=== PATIENT | female | born 1980 | race Caucasian/White ===

== ENCOUNTER → 2017-09-22 | Outpatient (CLI) | payer BC ==
[2017-09-22 10:38] VITALS: BP 116/68; PULSE 71; RESP 16; TEMP 98.4; BMI 29.8
--- NOTE | 2017-11-08 04:50 | P.PN ---
Subjective Progress Note Date: 09/22/17 DATE OF SERVICE: 09/22/2017 CHIEF COMPLAINT: Followup sleeve gastrectomy. HISTORY OF PRESENT ILLNESS: Erica Garay is a 37-year-old female who is status post sleeve gastrectomy, 2014. She is now over 3 years ago. Her highest weight was 253 pounds. Today she comes in 179 pounds. Since her last visit 1 year ago, she has lost another 6 pounds. She has been doing a high- protein low-carb diet.. She comes in today with concerns of her chronic panniculitis over 2+ years. She has been using prescribed medicated powders with minimal improvement. Her personal goal is to get down to 150 pounds. At present she has lost 74 pounds. Her excess percent weight loss is 71%. At her height of 5 foot 5 inches, her ideal body weight is 149 pounds. She is now 30 pounds overweight. No reports of reflux disease. No reports of abdominal pain. She complains of pain in her right hip as well as generalized fatigue. PAST MEDICAL HISTORY: 1. Osteoarthritis. 2. Gilbert syndrome. 3. Obesity. PAST SURGICAL HISTORY: 1. Bilateral breast reduction. 2. . 3. Laparoscopic cholecystectomy. 4. Sleeve gastrectomy. MEDICATIONS: 1. Nystatin. 2. Multivitamins. ALLERGIES: 1. ADHESIVE TAPE. 2. PENICILLIN. SOCIAL HISTORY: Lifelong nontobacco user. FAMILY HISTORY: No reports of gastrointestinal malignancies. History of morbid obesity and diabetes. REVIEW OF SYSTEMS: CONSTITUTIONAL: [place] body weight is 149 pounds. Highest weight 253 pounds. Body mass index reduced from 42.2 down to 29.9. GASTROINTESTINAL: No reports of gastroesophageal reflux disease. MUSCULOSKELETAL: Resolved lower back and bilateral knee pain. CARDIOVASCULAR: Resolved hypertension. Denies palpitations. RESPIRATORY: History of obstructive sleep apnea and insomnia. ENDOCRINE: No reports of diabetes. No reports of hypothyroidism. SKIN: Reports pannus with occasional itch and ulcerations consistent with mild to moderate panniculitis. HEENT: No troubles with vision or hearing. GI: No reports of dysphagia or change in bowel habits. NEURO: No reports of headaches or seizure disorders. PSYCH: No reports of depression or suicidal ideation. HEMATOLOGIC: No reports of DVTs or pulmonary embolism. PHYSICAL EXAM: VITAL SIGNS: 5 foot 5, 179 pounds. Body mass index 29.9. Vital Signs Temp 98.4 F 09/22/17 10:36 Pulse 71 09/22/17 10:36 Resp 16 09/22/17 10:36 BP 116/68 09/22/17 10:36 Pulse Ox GENERAL: Well-developed female in no acute distress. ABDOMEN: Soft. Nontender. Nondistended. No palpable incisional hernias. Pannus over pubis 5 cm. Weight of pannus 8 pounds. Findings of panniculitis with hyperemia along skin folds. MUSCULOSKELETAL: No clubbing, cyanosis, or edema. HEENT: No scleral icterus. Extraocular movements grossly intact. Moist. Mucosa. NECK: Supple without lymphadenopathy. CHEST: Nonlabored respirations with equal bilateral excursions. CARDIOVASCULAR: Regular rate and rhythm. NEURO: No focal or lateralizing signs. PSYCH: Alert and oriented to person place and time. SKIN: Well perfused. Good skin turgor. ASSESSMENT: 1. Morbid obesity due to excess calories. 2. Body mass index reduced from 42.2 down to 29.9. 3. Status post sleeve gastrectomy. 4. Panniculitis of the trunk. 5. Generalized fatigue. 6. Right hip pain. PLAN: 1. Recommend bariatric lab panel. 2. I reviewed benefits and risks of panniculectomy however she is seeking her personal goal of 150 pounds. Weight loss of approximately 100 pounds described. 3. Benefits and risks of panniculectomy including bleeding, infection, postoperative seromas, chronic pain, and cosmetic deformity were described. A panniculectomy packet was given. Recommend pictures today. 4. Additional prescription of nystatin powder in interim. 5. Recommend correction of nutritional deficiencies for generalized fatigue. 6. For her right hip pain, may benefit from plain right hip films.
== END | disposition home or self-care (01) ==
LOC: BARWHC3 09:04
PROVIDERS: ATTEND Surgery Plastic and Reconstructive Surgery
DX: Z09 Encounter for follow-up examination after completed treatment for conditions other than malignant neoplasm (principal); E66.01 Morbid (severe) obesity due to excess calories; M79.3 Panniculitis, unspecified; M25.551 Pain in right hip; R53.83 Other fatigue; M19.90 Unspecified osteoarthritis, unspecified site; E80.4 Gilbert syndrome; E66.9 Obesity, unspecified; Z68.41 Body mass index [BMI] 40.0-44.9, adult; Z90.49 Acquired absence of other specified parts of digestive tract; Z79.899 Other long term (current) drug therapy; Z88.0 Allergy status to penicillin; Z91.048 Other nonmedicinal substance allergy status; Z83.3 Family history of diabetes mellitus; Z98.84 Bariatric surgery status
CPT/HCPCS: 99211

== ENCOUNTER → 2017-10-15 | Outpatient (CLI) | payer BC ==
[2017-10-15 12:10] LABS: Basophils % (A) 0 %; Eosinophils # (A) 0.1 k/uL (0-0.7); Eosinophils % (A) 1 %; HCT 41.6 % (34.0-46.0); HGB 13.5 gm/dL (11.4-16.0); Lymphocytes # (A) 2.5 k/uL (1.0-4.8); Lymphocytes % (A) 34 %; MCH 29.6 pg (25.0-35.0); MCHC 32.5 g/dL (31.0-37.0); Mean Platelet Volume 6.9; Monocytes # (A) 0.3 k/uL (0-1.0); Monocytes % (A) 5 %; Neutrophils # (A) 4.3 k/uL (1.3-7.7); Neutrophils % (A) 59 %; Platelet Count 257 k/uL (150-450); RBC 4.58 m/uL (3.80-5.40); RDW 12.6 % (11.5-15.5); WBC 7.3 k/uL (3.8-10.6)
[2017-10-15 12:17] LABS: Partial Thromboplastin Time 23.2 sec (22.0-30.0); Prothrombin Time 9.7 sec (9.0-12.0)
[2017-10-15 12:31] LABS: ALT 38 U/L (9-52); AST 21 U/L (14-36); Albumin 4.1 g/dL (3.5-5.0); Alkaline Phosphatase 46 U/L (38-126); Anion Gap 10 mmol/L; Blood Urea Nitrogen 15 mg/dL (7-17); Calcium 9.6 mg/dL (8.4-10.2); Carbon Dioxide 30 mmol/L (22-30); Chloride 103 mmol/L (98-107); Cholesterol 174 mg/dL (<200); Glucose 83 mg/dL (74-99); HDL Cholesterol 57 mg/dL (40-60); LDL Cholesterol,Calculated 82 mg/dL (0-99); Magnesium 1.9 mg/dL (1.6-2.3); Phosphorus 3.2 mg/dL (2.5-4.5); Potassium 4.4 mmol/L (3.5-5.1); Sodium 143 mmol/L (137-145); Total Bilirubin 1.3 mg/dL (0.2-1.3); Triglycerides 173 mg/dL (<150)
[2017-10-15 17:39] LABS: Iron Saturation 48.5 (12.00-45.00)
[2017-10-15 17:47] LABS: Vitamin D 25 Hydroxy 28.2 ng/mL (30.0-100.0)
[2017-10-15 18:05] LABS: Folate, Serum 14.6 ng/mL
[2017-10-15 18:24] LABS: Parathyroid Hormone Intact 48.2 pg/mL (14.0-72.0)
[2017-10-15 19:20] LABS: Hemoglobin A1C 4.9 % (4.0-6.0)
[2017-10-18 05:26] LABS: Vitamin A 76 ug/dL (38-106)
[2017-10-18 05:37] LABS: Zinc, Serum 50 ug/dL (60-130)
[2017-10-18 07:12] LABS: Vitamin B1 48 ug/L (38-122)
[2017-10-20 19:53] LABS: Selenium 133 mcg/L (63-160)
== END | disposition home or self-care (01) ==
LOC: LABWHC1 11:29
PROVIDERS: ATTEND Surgery Plastic and Reconstructive Surgery
DX: Z00.00 Encounter for general adult medical examination without abnormal findings (principal); E66.01 Morbid (severe) obesity due to excess calories; E21.1 Secondary hyperparathyroidism, not elsewhere classified; E89.1 Postprocedural hypoinsulinemia; D50.9 Iron deficiency anemia, unspecified; K90.9 Intestinal malabsorption, unspecified; E55.9 Vitamin D deficiency, unspecified; K74.1 Hepatic sclerosis; N19 Unspecified kidney failure; K50.90 Crohn's disease, unspecified, without complications
CPT/HCPCS: 36415; 80053; 80061; 82306; 82525; 82607; 82728; 82746; 83036; 83540; 83550; 83735; 83970; 84100; 84134; 84255; 84425; 84443; 84590; 84630; 85025; 85610; 85730

== ENCOUNTER → 2018-09-13 | Outpatient (CLI) | payer BC ==
[2018-09-13 14:06] VITALS: BP 127/68; PULSE 64; RESP 16; TEMP 98.4; BMI 34.6
--- NOTE | 2018-09-13 14:07 | P.PN ---
Subjective Progress Note Date: 09/13/18 HPI: She denies abdominal pain. She has gained 30-pounds in 1 year. She has occassional GERD. She does have family history of thyroid problems. Her lowest weight was 166 pounds. ABDOMEN: Soft. Pannus of 10 pounds. A/P: 1. Get back on track. Recommend 2 week protein diet. 2. Recommend bariatric labs for thyroid evaluation. 3. She reports affinity for carbohydrate.
[2018-09-13 15:09] LABS: HCT 41.9 % (34.0-46.0); HGB 13.8 gm/dL (11.4-16.0); MCH 29.7 pg (25.0-35.0); MCHC 32.8 g/dL (31.0-37.0); MCV 90.4 fL (80.0-100.0); Mean Platelet Volume 6.5; Platelet Count 275 k/uL (150-450); RBC 4.63 m/uL (3.80-5.40); RDW 12.6 % (11.5-15.5); WBC 10.6 k/uL (3.8-10.6)
[2018-09-13 15:22] LABS: INR 0.9 (<1.2); Partial Thromboplastin Time 27.6 sec (22.0-30.0); Prothrombin Time 9.8 sec (9.0-12.0)
[2018-09-13 18:57] LABS: Parathyroid Hormone Intact 39.8 pg/mL (14.0-72.0)
[2018-09-13 21:02] LABS: Albumin 4.7 g/dL (3.80-4.90); Albumin/Globulin Ratio 2.14 (1.20-2.10); Anion Gap 10.2 mmol/L (4.00-12.00); Calcium 9.8 mg/dL (8.7-10.3); Carbon Dioxide 26.8 mmol/L (21.6-31.8); Globulin 2.2 g/dL (2.1-3.7); LDL Cholesterol,Calculated 97.8 mg/dL (0.0-131.0); Phosphorus 4.1 mg/dL (2.4-5.1); Potassium 4.2 mmol/L (3.5-5.5); Total Bilirubin 1.6 mg/dL (0.3-1.2); Total Protein 6.9 g/dL (6.2-8.2); VLDL Calculation 29.2 mg/dL (5.00-40.00)
[2018-09-13 21:09] LABS: Iron Saturation 25.32 (12.00-45.00)
[2018-09-13 21:19] LABS: Folate, Serum 8.5 ng/mL; Vitamin D 25 Hydroxy 41.9 ng/mL (30.0-100.0)
[2018-09-13 22:29] LABS: Hemoglobin A1C 5.3 % (4.0-6.0)
[2018-09-14 13:55] LABS: Zinc, Serum 50 ug/dL (60-130)
[2018-09-15 08:12] LABS: Vitamin B1 97 ug/L (38-122)
[2018-09-15 08:15] LABS: Vitamin A 66 ug/dL (38-106)
== END ==
LOC: BARWHC3 12:59
PROVIDERS: ATTEND Surgery Plastic and Reconstructive Surgery
DX: K21.9 Gastro-esophageal reflux disease without esophagitis (principal); E66.01 Morbid (severe) obesity due to excess calories; E21.1 Secondary hyperparathyroidism, not elsewhere classified; E89.1 Postprocedural hypoinsulinemia; D50.9 Iron deficiency anemia, unspecified; K90.9 Intestinal malabsorption, unspecified; E55.9 Vitamin D deficiency, unspecified; K74.1 Hepatic sclerosis; N19 Unspecified kidney failure; K50.90 Crohn's disease, unspecified, without complications; Z98.84 Bariatric surgery status; Z68.34 Body mass index [BMI] 34.0-34.9, adult
CPT/HCPCS: 36415; 80053; 80061; 82306; 82525; 82607; 82728; 82746; 83036; 83540; 83550; 83735; 83970; 84100; 84134; 84255; 84425; 84443; 84590; 84630; 85027; 85610; 85730; 97803; 99211

== ENCOUNTER → 2019-09-20 | Outpatient (CLI) | payer BC ==
[2019-09-20 09:49] VITALS: BP 117/78; PULSE 80; RESP 16; TEMP 98.2; BMI 36.6
--- NOTE | 2019-09-20 10:07 | P.PN ---
Subjective Progress Note Date: 09/20/19 DATE OF SERVICE: 09/20/2019 CHIEF COMPLAINT: Followup sleeve gastrectomy. HISTORY OF PRESENT ILLNESS: Erica Garay is a 39-year-old female who is status post sleeve gastrectomy, 2014. She is over 4 years out. Her highest weight was 253 pounds. She reports eating too much fast food. She has gained moderate weight. She checks her weight daily. She reports sedentary lifestyle. She has thyroid issues in her family. She reports new problems with her thyroid. Today she comes in 220 pounds from 208 pounds, 1 year ago. She has gained 12 pounds in 1 year and 41 pounds in 2 years. Lifetime weight loss is 33 pounds. Her lifetime excess percent weight loss is 32%. At her height of 5 foot 5 in ches, her ideal body weight is 149 pounds. She is now 71 pounds overweight. Her lowest weight was 166 pounds. PAST MEDICAL HISTORY: 1. Osteoarthritis. 2. Gilbert syndrome. 3. Morbid obesity due to excess calories, BMI 42.2, initial. PAST SURGICAL HISTORY: 1. Bilateral breast reduction. 2. . 3. Laparoscopic cholecystectomy. 4. Sleeve gastrectomy. MEDICATIONS: 1. Nystatin. 2. Multivitamins. ALLERGIES: 1. ADHESIVE TAPE. 2. PENICILLIN. SOCIAL HISTORY: Lifelong nontobacco user. FAMILY HISTORY: No reports of gastrointestinal malignancies. History of morbid obesity and diabetes. Family of thyroid disorder. REVIEW OF SYSTEMS: CONSTITUTIONAL: [place] body weight is 149 pounds. Highest weight 253 pounds. Body mass index reduced from 42.2 GASTROINTESTINAL: No reports of gastroesophageal reflux disease. MUSCULOSKELETAL: Resolved lower back and bilateral knee pain. CARDIOVASCULAR: Resolved hypertension. Denies palpitations. RESPIRATORY: History of obstructive sleep apnea and insomnia. ENDOCRINE: No reports of diabetes. No reports of hypothyroidism. SKIN: Reports pannus with occasional itch and ulcerations consistent with mild to moderate panniculitis. HEENT: No troubles with vision or hearing. GI: No reports of dysphagia or change in bowel habits. NEURO: No reports of headaches or seizure disorders. PSYCH: No reports of depression or suicidal ideation. HEMATOLOGIC: No reports of DVTs or pulmonary embolism. PHYSICAL EXAM: VITAL SIGNS: 5 foot 5, 220 pounds. Body mass index 36.6 Vital Signs Temp 98.2 F 09/20/19 09:46 Pulse 80 09/20/19 09:46 Resp 16 09/20/19 09:46 BP 117/78 09/20/19 09:46 Pulse Ox GENERAL: Well-developed female in no acute distress. ABDOMEN: Soft. Nontender. Nondistended. No palpable incisional hernias. MUSCULOSKELETAL: No clubbing, cyanosis, or edema. HEENT: No scleral icterus. Extraocular movements grossly intact. Moist. Mucosa. NECK: Supple without lymphadenopathy. CHEST: Nonlabored respirations with equal bilateral excursions. CARDIOVASCULAR: Regular rate and rhythm. NEURO: No focal or lateralizing signs. PSYCH: Alert and oriented to person place and time. SKIN: Well perfused. Good skin turgor. ASSESSMENT: 1. Morbid obesity due to excess calories. 2. Body mass index reduced from 42.2 down to 36.6 3. Status post sleeve gastrectomy. 4. Panniculitis of the trunk. 5. Generalized fatigue. 6. Right hip pain. 7. Dietary surveillance and counseling PLAN: 1. Recommend bariatric labs 2. Recommend journal entry for details of food 3. Recommend 2 week protein diet Laboratory Last Values WBC 9.3 k/uL (3.8-10.6) 09/20/19 10:45 RBC 4.41 m/uL (3.80-5.40) 09/20/19 10:45 Hgb 13.4 gm/dL (11.4-16.0) 09/20/19 10:45 Hct 39.4 % (34.0-46.0) 09/20/19 10:45 MCV 89.3 fL (80.0-100.0) 09/20/19 10:45 MCH 30.3 pg (25.0-35.0) 09/20/19 10:45 MCHC 33.9 g/dL (31.0-37.0) 09/20/19 10:45 RDW 12.5 % (11.5-15.5) 09/20/19 10:45 Plt Count 257 k/uL (150-450) 09/20/19 10:45 PT 10.2 sec (9.0-12.0) 09/20/19 10:45 INR 0.9 (<1.2) 09/20/19 10:45 APTT 29.2 sec (22.0-30.0) 09/20/19 10:45 Sodium 142 mmol/L (135-145) 09/20/19 10:45 Potassium 4.4 mmol/L (3.5-5.5) 09/20/19 10:45 Chloride 106 mmol/L (96-109) 09/20/19 10:45 Carbon Dioxide 27.9 mmol/L (21.6-31.8) 09/20/19 10:45 Anion Gap 8.10 mmol/L (4.00-12.00) 09/20/19 10:45 BUN 12.0 mg/dL (9.0-27.0) 09/20/19 10:45 Creatinine 0.8 mg/dL (0.6-1.5) 09/20/19 10:45 Est GFR (CKD-EPI)AfAm 107.6 (60.0-200.0) 09/20/19 10:45 Est GFR (CKD-EPI)NonAf 92.9 (60.0-200.0) 09/20/19 10:45 BUN/Creatinine Ratio 15.00 Ratio (12.00-20.00) 09/20/19 10:45 Glucose 84 mg/dL (70-110) 09/20/19 10:[address] Glu mg/dL 108 09/20/19 10:45 Hemoglobin A1c 5.4 % (4.0-6.0) 09/20/19 10:45 Calcium 9.4 mg/dL (8.7-10.3) 09/20/19 10:45 Phosphorus 2.5 mg/dL (2.4-5.1) 09/20/19 10:45 Magnesium 2.0 mg/dL (1.5-2.4) 09/20/19 10:45 Iron 95 ug/dL (50-170) 09/20/19 10:45 TIBC 303 ug/dL (228-460) 09/20/19 10:45 % Saturation 31.35 (12.00-45.00) 09/20/19 10:45 Ferritin 30.2 ng/mL (10.0-291.0) 09/20/19 10:45 Total Bilirubin 1.5 mg/dL (0.3-1.2) H 09/20/19 10:45 AST 27 U/L (13-35) 09/20/19 10:45 ALT 31 U/L (8-44) 09/20/19 10:45 Alkaline Phosphatase 83 U/L (41-126) 09/20/19 10:45 Total Protein 6.4 g/dL (6.2-8.2) 09/20/19 10:45 Albumin 4.50 g/dL (3.80-4.90) 09/20/19 10:45 Globulin 1.9 g/dL (1.6-3.3) 09/20/19 10:45 Albumin/Globulin Ratio 2.37 g/dL (1.60-3.17) 09/20/19 10:45 Prealbumin 26.0 mg/dL (18.0-42.0) 09/20/19 10:45 Triglycerides 202.0 mg/dL (0.0-149.0) H 09/20/19 10:45 Cholesterol 153 mg/dL (0-200) 09/20/19 10:45 LDL Cholesterol, Calc 73.6 mg/dL (0.0-131.0) 09/20/19 10:45 VLDL Cholesterol, Calc 40.40 mg/dL (5.00-40.00) H 09/20/19 10:45 HDL Cholesterol 39.0 mg/dL (40.0-60.0) L 09/20/19 10:45 Cholesterol/HDL Ratio 3.92 09/20/19 10:45 Vitamin A 49 ug/dL (38-106) 09/20/19 10:45 Vitamin B1 68 ug/L (38-122) 09/20/19 10:45 Vitamin B12 619.0 pg/mL (200.0-944.0) 09/20/19 10:45 Vitamin D 25-Hydroxy 34.8 ng/mL (30.0-100.0) 09/20/19 10:45 Folate 22.5 ng/mL 09/20/19 10:45 TSH 2.470 uIU/mL (0.350-5.500) 09/20/19 10:45 PTH Intact 59.1 pg/mL (14.0-72.0) 09/20/19 10:45 Copper 1320 ug/L (810-1990) 09/20/19 10:45 Selenium 162 mcg/L (63-160) H 09/20/19 10:45 Zinc 54 ug/dL (60-130) L 09/20/19 10:45 Objective - Vital Signs Vital signs: Vital Signs Temp 98.2 F 09/20/19 09:46 Pulse 80 09/20/19 09:46 Resp 16 09/20/19 09:46 BP 117/78 09/20/19 09:46 Pulse Ox Intake & Output 09/19/19 09/20/19 09/20/19 18:59 06:59 18:59 Weight 99.79 kg - Labs CBC & Chem 7: 09/20/19 10:45 09/20/19 10:45
[2019-09-20 11:20] LABS: HCT 39.4 % (34.0-46.0); HGB 13.4 gm/dL (11.4-16.0); MCH 30.3 pg (25.0-35.0); MCHC 33.9 g/dL (31.0-37.0); MCV 89.3 fL (80.0-100.0); Mean Platelet Volume 7.4; Platelet Count 257 k/uL (150-450); RBC 4.41 m/uL (3.80-5.40); RDW 12.5 % (11.5-15.5); WBC 9.3 k/uL (3.8-10.6)
[2019-09-20 11:38] LABS: INR 0.9 (<1.2); Partial Thromboplastin Time 29.2 sec (22.0-30.0); Prothrombin Time 10.2 sec (9.0-12.0)
[2019-09-20 15:45] LABS: % Iron Saturation 31.35 (12.00-45.00); African American GFR (CKD) 107.6 (60.0-200.0); Albumin 4.5 g/dL (3.80-4.90); Albumin/Globulin Ratio 2.37 (1.60-3.17); Anion Gap 8.1 mmol/L (4.00-12.00); Calcium 9.4 mg/dL (8.7-10.3); Carbon Dioxide 27.9 mmol/L (21.6-31.8); Chol/HDL Ratio 3.92; Globulin 1.9 g/dL (1.6-3.3); LDL Cholesterol,Calculated 73.6 mg/dL (0.0-131.0); Non-African American GFR(CKD) 92.9 (60.0-200.0); Phosphorus 2.5 mg/dL (2.4-5.1); Potassium 4.4 mmol/L (3.5-5.5); Total Bilirubin 1.5 mg/dL (0.3-1.2); Total Protein 6.4 g/dL (6.2-8.2); VLDL Calculation 40.4 mg/dL (5.00-40.00)
[2019-09-20 15:52] LABS: Ferritin 30.2 ng/mL (10.0-291.0)
[2019-09-20 16:03] LABS: Folate, Serum 22.5 ng/mL
[2019-09-20 18:31] LABS: Hemoglobin A1C 5.4 % (4.0-6.0)
[2019-09-21 12:10] LABS: Zinc, Serum 54 ug/dL (60-130)
[2019-09-22 19:42] LABS: Selenium 162 mcg/L (63-160)
[2019-09-24 07:01] LABS: Vitamin A 49 ug/dL (38-106)
[2019-09-24 07:17] LABS: Vit B1(Thiamine) 68 ug/L (38-122)
== END | disposition home or self-care (01) ==
LOC: BARWHC3 09:01
PROVIDERS: ATTEND Surgery Plastic and Reconstructive Surgery
DX: Z48.815 Encounter for surgical aftercare following surgery on the digestive system (principal); E66.01 Morbid (severe) obesity due to excess calories; Z68.36 Body mass index [BMI] 36.0-36.9, adult; M79.3 Panniculitis, unspecified; R53.83 Other fatigue; M25.551 Pain in right hip; E21.1 Secondary hyperparathyroidism, not elsewhere classified; E89.1 Postprocedural hypoinsulinemia; D50.9 Iron deficiency anemia, unspecified; K90.9 Intestinal malabsorption, unspecified; E55.9 Vitamin D deficiency, unspecified; K74.1 Hepatic sclerosis; N19 Unspecified kidney failure; K50.90 Crohn's disease, unspecified, without complications; Z71.3 Dietary counseling and surveillance; Z79.899 Other long term (current) drug therapy; Z88.0 Allergy status to penicillin; Z91.09 Other allergy status, other than to drugs and biological substances
CPT/HCPCS: 80053; 80061; 82306; 82525; 82607; 82728; 82746; 83036; 83540; 83550; 83735; 83970; 84100; 84134; 84255; 84425; 84443; 84590; 84630; 85027; 85610; 85730; 99211

== ENCOUNTER → 2020-04-08 | Outpatient (CLI) | payer BC ==
--- NOTE | 2020-04-08 07:54 | XR ---
EXAMINATION TYPE: XR chest 2V DATE OF EXAM: 04/08/2020 COMPARISON: NONE HISTORY: Chest pain TECHNIQUE: Frontal and lateral views of the chest are obtained. FINDINGS: There is no focal air space opacity. No evidence for pneumothorax. No pleural effusion. The cardiac silhouette size is within normal limits. The osseous structures are grossly intact. IMPRESSION: 1. No acute cardiopulmonary process.
[2020-04-08 11:29] LABS: African American GFR (CKD) 93.4 (60.0-200.0); Albumin 4.4 g/dL (3.80-4.90); Albumin/Globulin Ratio 1.91 (1.60-3.17); Anion Gap 10.1 mmol/L (4.00-12.00); BUN/Creat Ratio 13.33 Ratio (12.00-20.00); Carbon Dioxide 25.9 mmol/L (21.6-31.8); Globulin 2.3 g/dL (1.6-3.3); Non-African American GFR(CKD) 80.5 (60.0-200.0); Potassium 4.1 mmol/L (3.5-5.5); Total Bilirubin 1.5 mg/dL (0.3-1.2); Total Protein 6.7 g/dL (6.2-8.2)
== END | disposition home or self-care (01) ==
LOC: LABWHC1 07:18
PROVIDERS: ATTEND Ophthalmology
DX: C22.9 Malignant neoplasm of liver, not specified as primary or secondary (principal); C34.90 Malignant neoplasm of unspecified part of unspecified bronchus or lung; C69.30 Malignant neoplasm of unspecified choroid
CPT/HCPCS: 36415; 71046; 80053

== ENCOUNTER → 2020-09-10 | Outpatient (CLI) | payer BC ==
[2020-09-10 13:36] VITALS: BP 120/72; PULSE 73; RESP 18; TEMP 98.1
--- NOTE | 2020-09-10 14:07 | P.PN ---
Subjective Progress Note Date: 09/10/20 DATE OF SERVICE: 09/10/2020 CHIEF COMPLAINT: Followup sleeve gastrectomy HISTORY OF PRESENT ILLNESS: Erica Garay is a 40-year-old female who is status post sleeve gastrectomy, 2014. She is over 5 years out. She had COVID with loss of taste and smell. She did not have a fever. She had lost weight initially and got down to 209 and now back up to 217 pounds. She had done well with Keto diet in the past. She comes in with weight gain. She has family history of thyroid problems and is concerned for a new thyroid issue for her weight gain. She also had new diagnosis of ocular melanoma status post radiation. She presents for new work-up of thyroid disorder and dietary management. At her height of 5 foot 5 inches, her ideal body weight is 149 pounds. Her highest weight was 253 pounds. Today she comes in 217 pounds from 220 pounds, 1 year ago. She has lost 3 pounds in 1 year. Lifetime weight loss is 36 pounds. Her lifetime excess percent weight loss is 35%. She is 68 pounds overweight. Her lowest weight was 166 pounds. PAST MEDICAL HISTORY: 1. Osteoarthritis. 2. Gilbert syndrome. 3. Morbid obesity due to excess calories, BMI 42.2, initial. 4. Ocular melanoma status post radiation PAST SURGICAL HISTORY: 1. Bilateral breast reduction. 2. . 3. Laparoscopic cholecystectomy. 4. Sleeve gastrectomy. MEDICATIONS: Home Medications Medication Instructions Recorded Confirmed Nystatin 100,000 Unit/gm Powd 1 applic TOPICAL DIRECTED PRN 12/19/14 09/10/20 [Mycostatin Powder] Multivitamins, Thera [Theragran] 1 each PO DAILY 09/11/15 09/10/20 Biotin 2 cap PO DAILY 09/16/16 09/10/20 Calcium Carbonate 100 mg PO DAILY 09/10/20 09/10/20 Cholecalciferol [Vitamin D3 (25 500 unit PO DAILY 09/10/20 09/10/20 Mcg = 1000 Iu)] Cyanocobalamin [Vitamin B-12] 500 mcg PO DAILY 09/10/20 09/10/20 Previous Rx's Medication Instructions Recorded Nystatin 100,000 Unit/gm Powd 1 applic TOPICAL BID #60 powder 09/22/17 [Mycostatin Powder] ALLERGIES: 1. ADHESIVE TAPE. 2. PENICILLIN. SOCIAL HISTORY: Lifelong nontobacco user. FAMILY HISTORY: No reports of gastrointestinal malignancies. History of morbid obesity and diabetes. Family of thyroid disorder. REVIEW OF SYSTEMS: CONSTITUTIONAL: [place] body weight is 149 pounds. Highest weight 253 pounds. Body mass index reduced from 42.2. Height 5 foot 5 inches. GASTROINTESTINAL: No reports of gastroesophageal reflux disease. MUSCULOSKELETAL: Resolved lower back and bilateral knee pain. CARDIOVASCULAR: Resolved hypertension. Denies palpitations. RESPIRATORY: History of obstructive sleep apnea and insomnia. ENDOCRINE: No reports of diabetes. No reports of hypothyroidism. SKIN: Reports pannus with occasional itch and ulcerations consistent with mild to moderate panniculitis. HEENT: No troubles with hearing. Recent ocular melanoma GI: No reports of dysphagia or change in bowel habits. NEURO: No reports of headaches or seizure disorders. PSYCH: No reports of depression or suicidal ideation. HEMATOLOGIC: No reports of DVTs or pulmonary embolism. PHYSICAL EXAM: VITAL SIGNS: 5 foot 5, 217 pounds. Body mass index 36.1 Vital Signs Temp 98.1 F 09/10/20 13:32 Pulse 73 09/10/20 13:32 Resp 18 09/10/20 13:32 BP 120/72 09/10/20 13:32 Pulse Ox GENERAL: Well-developed female in no acute distress. ABDOMEN: Soft. Nontender. Nondistended. No palpable incisional hernias. MUSCULOSKELETAL: No clubbing, cyanosis, or edema. HEENT: No scleral icterus. Extraocular movements grossly intact. Moist. Mu cosa. NECK: Supple without lymphadenopathy. CHEST: Nonlabored respirations with equal bilateral excursions. CARDIOVASCULAR: Regular rate and rhythm. NEURO: No focal or lateralizing signs. PSYCH: Alert and oriented to person place and time. SKIN: Well perfused. Good skin turgor. ASSESSMENT: 1. Morbid obesity due to excess calories. 2. Body mass index reduced from 42.2 down to 36.1 3. Status post sleeve gastrectomy. 4. Generalized fatigue. 5. Dietary surveillance and counseling 7. Family history of thyroid disorder. 8. Hyrpothyroidismm PLAN: 1. Recommend bariatric labs for hypothyroidism 2. Recommend 2 week high protein low carb diet 3. Recommend food diary journal. Objective - Vital Signs Vital signs: Vital Signs Temp 98.1 F 09/10/20 13:32 Pulse 73 09/10/20 13:32 Resp 18 09/10/20 13:32 BP 120/72 09/10/20 13:32 Pulse Ox Intake & Output 09/09/20 09/10/20 09/10/20 18:59 06:59 18:59 Weight 98.43 kg - Labs CBC & Chem 7: 09/10/20 14:37 09/10/20 14:37
[2020-09-10 15:15] LABS: HCT 41.2 % (34.0-46.0); HGB 14.2 gm/dL (11.4-16.0); MCH 30.4 pg (25.0-35.0); MCHC 34.4 g/dL (31.0-37.0); MCV 88.4 fL (80.0-100.0); Mean Platelet Volume 7.4; Platelet Count 244 k/uL (150-450); RBC 4.66 m/uL (3.80-5.40); RDW 12.8 % (11.5-15.5)
[2020-09-11 01:27] LABS: % Iron Saturation 32.93 (12.00-45.00); African American GFR (CKD) 106.9 (60.0-200.0); Albumin 4.7 g/dL (3.80-4.90); Albumin/Globulin Ratio 2.04 (1.60-3.17); Anion Gap 10.6 mmol/L (4.00-12.00); BUN/Creat Ratio 18.75 Ratio (12.00-20.00); Bilirubin, Conjugated 0.4 mg/dL (0.20-0.40); Bilirubin,Unconjugated 1.3 mg/dL; Calcium 10.1 mg/dL (8.7-10.3); Carbon Dioxide 25.4 mmol/L (21.6-31.8); Chol/HDL Ratio 3.92; Globulin 2.3 g/dL (1.6-3.3); LDL Cholesterol,Calculated 52.2 mg/dL (0.0-131.0); Magnesium 2.1 mg/dL (1.5-2.4); Non-African American GFR(CKD) 92.2 (60.0-200.0); Phosphorus 4.3 mg/dL (2.4-5.1); Potassium 4.6 mmol/L (3.5-5.5); Total Bilirubin 1.7 mg/dL (0.3-1.2); VLDL Calculation 61.8 mg/dL (5.00-40.00)
[2020-09-11 01:35] LABS: T4, Free (Free Thyroxine) 0.9 ng/dL (0.80-1.80)
[2020-09-11 01:40] LABS: Folate, Serum 13.2 ng/mL; Hemoglobin A1C 5.5 % (4.0-6.0)
[2020-09-11 04:05] LABS: INR 0.99 (0.90-1.11); Partial Thromboplastin Time 27.8 sec (23.5-31.0); Prothrombin Time 10.7 sec (9.9-11.9)
[2020-09-12 14:17] LABS: Zinc, Serum 64 ug/dL (60-130)
[2020-09-15 07:09] LABS: Vitamin A 58 ug/dL (38-106)
[2020-09-15 07:13] LABS: Vit B1(Thiamine) 60 ug/L (38-122)
[2020-09-15 10:52] LABS: Selenium 107 mcg/L (63-160)
== END | disposition home or self-care (01) ==
LOC: BARWHC3 12:59
PROVIDERS: ATTEND Surgery Plastic and Reconstructive Surgery
DX: E66.01 Morbid (severe) obesity due to excess calories (principal); R53.83 Other fatigue; E03.9 Hypothyroidism, unspecified; D50.8 Other iron deficiency anemias; E44.0 Moderate protein-calorie malnutrition; E55.9 Vitamin D deficiency, unspecified; K74.1 Hepatic sclerosis; N19 Unspecified kidney failure; K50.90 Crohn's disease, unspecified, without complications; Z68.36 Body mass index [BMI] 36.0-36.9, adult; Z98.84 Bariatric surgery status; Z71.3 Dietary counseling and surveillance; Z83.49 Family history of other endocrine, nutritional and metabolic diseases
CPT/HCPCS: 80053; 80061; 82248; 82306; 82525; 82607; 82728; 82746; 83036; 83540; 83550; 83735; 83970; 84100; 84134; 84255; 84425; 84439; 84443; 84481; 84590; 84630; 85027; 85610; 85730; 99211

== ENCOUNTER → 2021-02-24 | Outpatient (CLI) | payer BC ==
--- NOTE | 2021-02-24 11:28 | MM ---
Reason for exam: screening (asymptomatic). Baseline mammogram. History: Patient history of other cancer. Family history of breast cancer in mother at age 60 and breast cancer in 3 maternal aunts. Reductions of both breasts, 2006. Taking hormonal contraceptives beginning at age 18. Physical Findings: Nurse did not find any significant physical abnormalities on exam. MG 3D Screening Mammo W/Cad Bilateral CC and MLO view(s) were taken. XCCL view(s) were taken of the right breast. The breast tissue is heterogeneously dense. This may lower the sensitivity of mammography. Left breast 6mm mass at 5 o'clock 11cm from nipple. Right breast 6mm mass at 7 o'clock 6cm from nipple. These results were verbally communicated with the patient and result sheet given to the patient on 02/24/21. ASSESSMENT: Incomplete: need additional imaging evaluation, BI-RAD 0 RECOMMENDATION: Ultrasound of both breasts.
--- NOTE | 2021-02-24 11:30 | USB ---
Reason for exam: additional evaluation requested from abnormal screening. History: Patient history of other cancer. Family history of breast cancer in mother at age 60 and breast cancer in 3 maternal aunts. Reductions of both breasts, 2006. Taking hormonal contraceptives beginning at age 18. Physical Findings: Breast exam preformed at baseline screening. US Breast Workup Limited ANTONIETA Right limited breast ultrasound including focal area of concern, retroareolar and axilla demonstrates a 7 x 3 x 4mm oval, cystic lesion at 7 o'clock. Left limited breast ultrasound including focal area of concern, retroareolar and axilla demonstrates a 5 x 2 x 6mm oval, mixed lesion at 4 o'clock with septation, minimally complex cyst. These are benign appearing. These results were verbally communicated with the patient and result sheet given to the patient on 02/24/21. ASSESSMENT: Benign, BI-RAD 2 RECOMMENDATION: Return to routine screening mammogram schedule for both breasts.
== END | disposition home or self-care (01) ==
LOC: RADMAMWWP 07:37
PROVIDERS: ATTEND Obstetrics & Gynecology
DX: Z12.31 Encounter for screening mammogram for malignant neoplasm of breast (principal); Z80.3 Family history of malignant neoplasm of breast; N60.11 Diffuse cystic mastopathy of right breast; N60.12 Diffuse cystic mastopathy of left breast
CPT/HCPCS: 77063; 77067

== ENCOUNTER 2021-06-13 16:29 | Observation (INO) | payer BC ==
[2021-06-13] MEDS ORDERED: cefTRIAXone IN SWFI 1,000 MG/10 ML SYRINGE IVP STA ×3 (17:04→17:33)
[2021-06-13] MEDS ORDERED: NALOXONE 0.4 MG/ML 1 ML VIAL IV PRN (17:07)
[2021-06-13] MEDS ORDERED: ACETAMINOPHEN TAB 325 MG TAB PO PRN (17:07)
--- NOTE | 2021-06-13 17:08 | ED ---
General Adult HPI - General Chief complaint: Recheck/Abnormal Lab/Rx Stated complaint: Post op infection Time Seen by Provider: 06/13/21 16:43 Source: patient, RN notes reviewed, old records reviewed Mode of arrival: ambulatory Limitations: no limitations - History of Present Illness Initial comments: 40-year-old female presenting from outside hospital with skin infection. Patient had a melanoma removed by dermatology and his had a subsequent cellulitis that was treated with minocycline as an outpatient and has worsened over the past 48 hours. She was seen at an outside hospital given a dose of vancomycin, clindamycin and Flagyl. She was transferred for continued IV antibiotics at this institution. She is a nondiabetic. She's had no fever. She has been somewhat lightheaded. - Related Data Home Medications Medication Instructions Recorded Confirmed Nystatin 100,000 Unit/gm Powd 1 applic TOPICAL DIRECTED PRN 12/19/14 09/10/20 [Mycostatin Powder] Multivitamins, Thera [Theragran] 1 each PO DAILY 09/11/15 09/10/20 Biotin 2 cap PO DAILY 09/16/16 09/10/20 Calcium Carbonate 100 mg PO DAILY 09/10/20 09/10/20 Cholecalciferol [Vitamin D3 (25 500 unit PO DAILY 09/10/20 09/10/20 Mcg = 1000 Iu)] Cyanocobalamin [Vitamin B-12] 500 mcg PO DAILY 09/10/20 09/10/20 Previous Rx's Medication Instructions Recorded Nystatin 100,000 Unit/gm Powd 1 applic TOPICAL BID #60 powder 09/22/17 [Mycostatin Powder] Allergies Allergy/AdvReac Type Severity Reaction Status Date / Time adhesive Allergy Rash/Hives Verified 06/13/21 16:35 Penicillins Allergy Rash/Hives Verified 06/13/21 16:35 Review of Systems ROS Statement: Those systems with pertinent positive or pertinent negative responses have been documented in the HPI. ROS Other: All systems not noted in ROS Statement are negative. 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 Past Anesthesia/Blood Transfusion Reactions: Postoperative Nausea & Vomiting (PONV) Past Psychological History: No Psychological Hx Reported Smoking Status: Never smoker Past Alcohol Use History: Rare Past Drug Use History: None Reported - Past Family History Mother Family Medical History: Cancer, Thyroid Disorder Additional Family Medical History / Comment(s): SKIN CA, GRAVES DX General Exam Limitations: no limitations General appearance: alert, in no apparent distress Head exam: Present: atraumatic, normocephalic Eye exam: Present: normal appearance, PERRL ENT exam: Present: normal exam Neck exam: Present: normal inspection. Absent: tenderness, meningismus Respiratory exam: Present: normal lung sounds bilaterally. Absent: respiratory distress Cardiovascular Exam: Present: regular rate, normal rhythm GI/Abdominal exam: Present: soft. Absent: distended, tenderness, guarding Neurological exam: Present: alert, oriented X3 Psychiatric exam: Present: normal affect, normal mood Skin exam: Present: other (Cellulitis on the left medial thigh, there is a incision which is well-healed, no purulence. There is some surrounding induration. No fluctuance. The cellulitis is marked with a skin marker.) Course Vital Signs 06/13/21 16:36 Temperature 97.8 F Pulse Rate 80 Respiratory 18 Rate Blood Pressure 113/74 O2 Sat by Pulse 96 Oximetry Medical Decision Making - Medical Decision Making 40-year-old female presenting for cellulitis, failed outpatient treatment. Patient had been given clindamycin and vancomycin prior to arrival. She did report a reaction with the vancomycin and I believe this medication was stopped although the exact amount the patient received is not known. She had been given clindamycin and I did give a dose of ceftriaxone in the emergency department. She will be admitted for IV antibiotics. Case discussed with sound physician. lab studies will be repeated. Disposition Clinical Impression: Cellulitis Disposition: ADMITTED IP TO THIS HOSP Condition: Stable Is patient prescribed a controlled substance at d/c from ED?: No Referrals: Bonilla Flores MD [Primary Care Provider] - 1-2 days Decision to Admit Reason: Admit from EC Decision Date: 06/13/21 Decision Time: 17:07
[2021-06-13] MEDS: SODIUM CHLORIDE 0.9% 1,000 ML IV SCH ×2 (17:23→22:53)
[2021-06-13 17:38] LABS: Basophils % (A) 0 %; Eosinophils # (A) 0.4 k/uL (0-0.7); Eosinophils % (A) 3 %; HCT 41.7 % (34.0-46.0); HGB 14.2 gm/dL (11.4-16.0); Lymphocytes # (A) 3.2 k/uL (1.0-4.8); Lymphocytes % (A) 31 %; MCH 31.3 pg (25.0-35.0); MCHC 34.2 g/dL (31.0-37.0); MCV 91.7 fL (80.0-100.0); Mean Platelet Volume 7.3; Monocytes # (A) 0.4 k/uL (0-1.0); Monocytes % (A) 4 %; Neutrophils # (A) 6.3 k/uL (1.3-7.7); Neutrophils % (A) 61 %; Platelet Count 275 k/uL (150-450); RBC 4.54 m/uL (3.80-5.40); RDW 13.2 % (11.5-15.5); WBC 10.3 k/uL (3.8-10.6)
[2021-06-13 17:46] LABS: ALT 22 U/L (4-34); AST 22 U/L (14-36); African American GFR (CKD) >90 (>60 ml/min/1.73 sqM); Alkaline Phosphatase 71 U/L (38-126); Anion Gap 8 mmol/L; Blood Urea Nitrogen 14 mg/dL (7-17); Calcium 9.3 mg/dL (8.4-10.2); Carbon Dioxide 20 mmol/L (22-30); Chloride 111 mmol/L (98-107); Glucose 174 mg/dL (74-99); Non-African American GFR(CKD) >90 (>60 ml/min/1.73 sqM); Potassium 3.8 mmol/L (3.5-5.1); Sodium 139 mmol/L (137-145); Total Bilirubin 2.5 mg/dL (0.2-1.3); Total Protein 6.8 g/dL (6.3-8.2)
[2021-06-13] MEDS ORDERED: HYDROcodone/APAP 5-325MG 1 EACH TAB PO PRN (18:27)
--- NOTE | 2021-06-13 19:15 | P.HPIM ---
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 Gomez on 06/11/21. Pt states that on Tuesday (06/12/21) she began to notice some redness and swelling surrounding the surgical site and called the office and was started on minocycline. Patient reports she took this antibiotic as prescribed Tuesday and received second dose again today, but redness and swelling continued to worsen so she went to the [facility] ER in [place] for further evaluation. Patient was given IV antibiotics: Vancomycin, clindamycin, and Flagyl reportedly developed a reaction to vancomycin while infusing and this was stopped. Patient then transferred to our facility for continued medical management. In the ED, patient was seen and fully evaluated. Labs completed revealing CBC to be unremarkable, lactate normal findings at 1.3, BMP revealing mild metabolic acidosis with chloride of 111, carbon dioxide 20, and normal anion gap of 8. Liver profile did reveal an elevated total bilirubin of 2.5 patient denies having any abdominal pain or complaints and reports history of cholecystectomy. Patient being admitted under our team for diagnosis of cellulitis failing outpatient treatment. Upon evaluation at bedside patient with surgical incision to left anterior thigh. Surgical incision well approximated and intact with no drainage noted. There is significant surrounding erythema, edema, and increased warmth. Currently outlined with a skin marker. Patient denies having any fevers, chills, headache, lightheadedness, dizziness, chest pain, palpitations, shortness of breath, abdominal pain, nausea, vomiting, pain or difficulty with ambulation, numbness, tingling, or any other complaints at this time. Patient states left leg pain is controlled and rates currently 1-2/10. Review of systems: Pertinent positives and negatives as discussed in HPI, a complete review of systems was performed and all other systems are negative. Physical exam: Vital signs reviewed and stable. General: Nontoxic, no distress and appears stated age. Derm: Skin warm and dry, normal coloration for ethnicity. Surgical incision to left anterior thigh. Surgical incision well approximated and intact with no drainage noted. There is significant surrounding erythema, edema, and increased warmth. Head: Atraumatic, normocephalic and symmetric. Eyes: EOMs intact, no lid lag, and anicteric sclera Mouth: no lip lesions, mucus membranes moist Cardiovascular: regular rate and rhythm with normal S1S2, no murmur, positive posterior tibial pulses bilaterally, and cap refill < 2 seconds. Lungs: Respirations even, regular, and unlabored on room air. Lungs CTA bilaterally, no rhonchi, no rales, no wheezing, and no accessory muscle usage. Abdominal: soft, nontender to palpation, no guarding, no appreciable organomegaly Ext: ROM intact. No gross muscle atrophy, no edema, no contractures Neuro: Speech clear, face symmetrical and CN II-XII grossly intact with no noted focal neuro deficits Psych: Alert and oriented to person, place, time, and situation. Appropriate and pleasant affect. Assessment and Plan of Care: Cellulitis, failed outpatient treatment -Patient to receive IV antibiotic clindamycin until further cultures available. -Orders placed for wound cultures and blood culture x2. -Patient afebrile with normal WBC count. -May consider infectious disease consult if no improvement after initiation of IV antibiotic. -Symptomatic care and pain management. Hyperbilirubinemia -Acute versus chronic, unclear etiology -Pt denies any abdominal complaints or nausea at this time. Reports history of cholecystectomy. -Caution with hepatotoxic medications. -We will continue to monitor with repeat a.m. labs, pending these results additional orders may be placed. The patient is admitted with an anticipated greater than 2 midnight stay for cesia luation of cellulitis, failed outpatient treatment] CODE STATUS: Full code DVT prophylaxis: Heparin Discussed with: Patient and RN Anticipated discharge date: Clinical course to determine Anticipated discharge place: Home A total of 45 minutes was spent on the care of this complex patient more than 50% of the time was spent in counseling and care coordination. 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 Past Anesthesia/Blood Transfusion Reactions: Postoperative Nausea & Vomiting ( PONV) Past Psychological History: No Psychological Hx Reported Smoking Status: Never smoker Past Alcohol Use History: Rare Past Drug Use History: None Reported - Past Family History Mother Family Medical History: Cancer, Thyroid Disorder Additional Family Medical History / Comment(s): SKIN CA, GRAVES DX Medications and Allergies Home Medications Medication Instructions Recorded Confirmed Type Multivitamins, Thera [Theragran] 1 each PO DAILY 09/11/15 06/13/21 History Calcium Carbonate 500 mg PO DAILY 09/10/20 06/13/21 History Minocycline HCl [Minocin] 100 mg PO BID 06/13/21 06/13/21 History Vitamin C/Biotin [Hair, Skin and 1 tab PO DAILY 06/13/21 06/13/21 History Nails Chew] Allergies Allergy/AdvReac Type Severity Reaction Status Date / Time adhesive Allergy Rash/Hives Verified 06/13/21 18:43 Penicillins Allergy Rash/Hives Verified 06/13/21 18:43 Physical Exam Vitals: Vital Signs Temp Pulse Resp BP Pulse Ox 06/13/21 16:36 97.8 F 80 18 113/74 96 Intake and Output 06/13/21 06/13/21 06/13/21 06:59 14:59 22:59 Other: Weight 99.79 kg Results CBC & Chem 7: 06/13/21 17:33 <Kennedy Rodriges M - Last Filed: 06/13/21 21:46> Physical Exam Vitals: Vital Signs Temp Pulse Pulse Resp BP BP Pulse Ox 06/13/21 20:00 98.6 F 82 16 102/69 97 06/13/21 18:40 98.2 F 70 16 101/67 96 06/13/21 16:36 97.8 F 80 18 113/74 96 Intake and Output 06/13/21 06/13/21 06/13/21 06:59 14:59 22:59 Intake Total 60 Balance 60 Intake: Oral 60 Other: Weight 100.1 kg Results CBC & Chem 7: 06/13/21 17:33 06/13/21 17:33 Labs: Abnormal Lab Results - Last 24 Hours (Table) 06/13/21 Range/Units 17:33 Chloride 111 H (98-107) mmol/L Carbon Dioxide 20 L (22-30) mmol/L Glucose 174 H (74-99) mg/dL Total Bilirubin 2.5 H (0.2-1.3) mg/dL Assessment and Plan Assessment: Patient seen and examined independently. Patient was also seen by Adilson Mai NP and case was discussed. I am in agreement with subjective, physical exam, assessment and plan as written above and amended below. as discussed with OUTSIDE PLANT TECHNICIAN, will discontinue clindamycine and start patient on Van comycin DVT PPX with lovenox sc daily
[2021-06-13] MEDS: ENOXAPARIN 40 MG/0.4 ML SYRINGE SQ SCH (21:44)
[2021-06-13] MEDS ORDERED: VANCOMYCIN IV PER PHARMACY 1 EACH MISC MISCELLANE PRN (21:45)
[2021-06-13] MEDS ORDERED: VANCOMYCIN 1,500 MG in SODIUM CHLORIDE 0.9% 250 ML IVPB ONE (23:00)
[2021-06-14] MEDS ORDERED: CLINDAMYCIN 600 MG in DEXTROSE 5% IN WATER 50 ML IVPB SCH ×2
[2021-06-14 05:18] LABS: Basophils % (A) 0 %; Eosinophils # (A) 0.4 k/uL (0-0.7); Eosinophils % (A) 4 %; HCT 37.8 % (34.0-46.0); Lymphocytes % (A) 30 %; MCH 31.3 pg (25.0-35.0); MCHC 34.3 g/dL (31.0-37.0); MCV 91.3 fL (80.0-100.0); Monocytes # (A) 0.4 k/uL (0-1.0); Monocytes % (A) 5 %; Neutrophils # (A) 5.9 k/uL (1.3-7.7); Neutrophils % (A) 60 %; Platelet Count 242 k/uL (150-450); RBC 4.14 m/uL (3.80-5.40); RDW 13.1 % (11.5-15.5); WBC 9.9 k/uL (3.8-10.6)
[2021-06-14 05:43] LABS: African American GFR (CKD) >90 (>60 ml/min/1.73 sqM); Anion Gap 5 mmol/L; Blood Urea Nitrogen 15 mg/dL (7-17); Calcium 8.8 mg/dL (8.4-10.2); Carbon Dioxide 24 mmol/L (22-30); Chloride 110 mmol/L (98-107); Glucose 96 mg/dL (74-99); Non-African American GFR(CKD) >90 (>60 ml/min/1.73 sqM); Potassium 4.3 mmol/L (3.5-5.1); Sodium 139 mmol/L (137-145)
[2021-06-14 08:47] VITALS: BP 112/71; PULSE 67; RESP 17; TEMP 98.5
[2021-06-14] MEDS: ENOXAPARIN 40 MG/0.4 ML SYRINGE SQ SCH (09:10)
[2021-06-14] MEDS ORDERED: VANCOMYCIN 1,500 MG in SODIUM CHLORIDE 0.9% 250 ML IVPB SCH (11:00)
--- NOTE | 2021-06-14 13:37 | P.DS ---
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 Gomez on 06/11/21. Pt states that on Tuesday (06/12/21) she began to notice some redness and swelling surrounding the surgical site and called the office and was started on minocycline. Patient reports she took this antibiotic as prescribed Tuesday and received second dose again today, but redness and swelling continued to worsen so she went to the [facility] ER in [place] for further evaluation. Patient was given IV antibiotics: Vancomycin, clindamycin, and Flagyl reportedly developed a reaction to vancomycin while infusing and this was stopped. Patient then transferred to our facility for continued medical management. In the ED, patient was seen and fully evaluated. Labs completed revealing CBC to be unremarkable, lactate normal findings at 1.3, BMP revealing mild metabolic acidosis with chloride of 111, carbon dioxide 20, and normal anion gap of 8. Liver profile did reveal an elevated total bilirubin of 2.5 patient denies having any abdominal pain or complaints and reports history of cholecystectomy. Patient being admitted under our team for diagnosis of cellulitis failing outpatient treatment. We continued with IV antibiotics, patient had significant improvement in erythema and edema. Patient being discharged home on oral antibiotics Keflex and doxycycline. Pt to follow up with Dr. Flores for further evaluation of your asymptomatic elevated bilirubin level and with , for continued close monitoring of your cellulitis status post surgical removal of your melanoma on your left leg. Patient educated that if she develops a fever, drainage from wound, or development of abscess she will need to be re- evaluated by a medical professional. Physical exam: Vital signs reviewed and stable. General: Nontoxic, no distress and appears stated age. Derm: Skin warm and dry, normal coloration for ethnicity. Surgical incision to left anterior thigh. Surgical incision well approximated and intact with no drainage noted. There is significant improvement of erythema and edema. Head: Atraumatic, normocephalic and symmetric. Eyes: EOMs intact, no lid lag, and anicteric sclera Mouth: no lip lesions, mucus membranes moist Cardiovascular: regular rate and rhythm with normal S1S2, no murmur, positive posterior tibial pulses bilaterally, and cap refill < 2 seconds. Lungs: Respirations even, regular, and unlabored on room air. Lungs CTA bilaterally, no rhonchi, no rales, no wheezing, and no accessory muscle usage. Abdominal: soft, nontender to palpation, no guarding, no appreciable organomeg timmy Ext: ROM intact. No gross muscle atrophy, no edema, no contractures Neuro: Speech clear, face symmetrical and CN II-XII grossly intact with no noted focal neuro deficits Psych: Alert and oriented to person, place, time, and situation. Appropriate and pleasant affect. A total of 45 minutes of time were spent preparing this complex discharge summary. Patient Condition at Discharge: Stable Plan - Discharge Summary Discharge Rx Participant: No New Discharge Prescriptions: New Cephalexin [Keflex] 500 mg PO Q8HR 10 Days #30 cap Doxycycline [Vibramycin] 100 mg PO BID 10 Days #20 cap Continue Multivitamins, Thera [Multivitamin (formulary)] 1 each PO DAILY Calcium Carbonate 500 mg PO DAILY Vitamin C/Biotin [Hair, Skin and Nails Chew] 1 tab PO DAILY Discontinued Minocycline HCl [Minocin] 100 mg PO BID Discharge Medication List Multivitamins, Thera [Multivitamin (formulary)] 1 each PO DAILY 09/11/15 [History] Calcium Carbonate 500 mg PO DAILY 09/10/20 [History] Vitamin C/Biotin [Hair, Skin and Nails Chew] 1 tab PO DAILY 06/13/21 [History] Cephalexin [Keflex] 500 mg PO Q8HR 10 Days #30 cap 06/14/21 [Rx] Doxycycline [Vibramycin] 100 mg PO BID 10 Days #20 cap 06/14/21 [Rx] Follow up Appointment(s)/Referral(s): Bonilla Flores MD [Primary Care Provider] - 1-2 days Patient Instructions/Handouts: Cellulitis (DC) Activity/Diet/Wound Care/Special Instructions: It is very important for you to take your antibiotics directly as prescribed without skipping any doses. You will need to follow-up with your primary care doctor, Dr. Flores in 3 days as well as your hair spinner, Dr. Gomez, for continued close monitoring of your cellulitis status post surgical removal of your melanoma on your left leg. Remember as we discussed, if you develop a fever, drainage from wound, or development of abscess you will need to be re-evaluated by a medical professional. You will need to follow up with Dr. Flores for further evaluation of your asymptomatic elevated bilirubin level. Thank you for allowing us to participate in your care, it was truly a pleasure having you for our patient!! Continue diet as tolerated. Continue activity as tolerated. Discharge Disposition: HOME SELF-CARE <Janel Marshall - Last Filed: 06/14/21 18:40> Providers Date of admission: 06/13/21 17:11 Attending physician: Janel Marshall DO Primary care physician: Bonilla Flores [facility] Course: Adilson Mai NP rendered care for this patient independently, reviewed the findings and plan as documented in the note above. I did not physically speak with or examine the patient on this date.
== END 2021-06-14 14:41 | disposition home or self-care (01) ==
LOC: EC 16:29 → 6PED 17:11
PROVIDERS: ADMIT Internal Medicine; ATTEND Internal Medicine
DX: T81.40XA Infection following a procedure, unspecified, initial encounter (principal); L03.90 Cellulitis, unspecified; C43.9 Malignant melanoma of skin, unspecified; T36.8X5A Adverse effect of other systemic antibiotics, initial encounter; Y92.239 Unspecified place in hospital as the place of occurrence of the external cause; E87.2 Acidosis; K21.9 Gastro-esophageal reflux disease without esophagitis; R17 Unspecified jaundice; L20.9 Atopic dermatitis, unspecified; Z88.0 Allergy status to penicillin; Z91.048 Other nonmedicinal substance allergy status; Z98.84 Bariatric surgery status; Z90.49 Acquired absence of other specified parts of digestive tract; Z92.3 Personal history of irradiation; Z98.890 Other specified postprocedural states; Z86.32 Personal history of gestational diabetes; Z80.8 Family history of malignant neoplasm of other organs or systems; Z83.49 Family history of other endocrine, nutritional and metabolic diseases; Z85.840 Personal history of malignant neoplasm of eye
CPT/HCPCS: 99284; 96361; 96365; 96366; 96372 ×2; 96375; 80053; 80048; 83605; 85025 ×2; 87040; G0378 ×2; J3370 ×2; J1650 ×2; J0696

== ENCOUNTER → 2022-08-16 | Outpatient (CLI) | payer BC ==
--- NOTE | 2022-08-19 15:55 | MM ---
Reason for Exam: Screening (asymptomatic). Last mammogram was performed 1 year(s) and 6 month(s) ago. Patient History: Menarche at age 12. First Full-Term at age 30. Late child-bearing (after 30). Other cancer. Currently using Hormonal Contraceptives, starting at age 18. 2006, Bilateral Reduction. Maternal aunt had breast cancer, age 61. Mother had breast cancer, age 60. Risk Values: Mirta 5 year model risk: 1.2%. NCI Lifetime model risk: 19.1%. Prior Study Comparison: 02/24/2021 Bilateral Screening Mammogram, [facility]. Tissue Density: There are scattered fibroglandular densities. Findings: Analyzed By CAD. Pattern appears symmetrical and stable. No significant interval change is evident. No suspicious groups of microcalcifications, spiculated or lobular masses, architectural distortion or other secondary signs of malignancy are mammographically apparent. Overall Assessment: Benign, BI-RAD 2 Management: Screening Mammogram of both breasts in 1 year. A negative mammogram report should not preclude additional follow up of suspicious palpable abnormalities. Patient should continue monthly self breast exam. A clinical breast exam by your physician is recommended on an annual basis and results should be correlated with mammographic findings. Electronically signed and approved by: Dean Tucker D.O. Radiologis
== END | disposition home or self-care (01) ==
LOC: RADMAMWWP 16:53
PROVIDERS: ATTEND Obstetrics & Gynecology
DX: Z12.31 Encounter for screening mammogram for malignant neoplasm of breast (principal); Z80.3 Family history of malignant neoplasm of breast
CPT/HCPCS: 77063; 77067

== ENCOUNTER → 2022-09-11 | Outpatient (CLI) | payer BC ==
[2022-09-11 18:19] LABS: HCT 39.5 % (37.2-46.3); HGB 13.1 g/dL (12.0-15.0); MCH 29.6 pg (27.0-32.0); MCHC 33.2 g/dL (32.0-37.0); MCV 89.2 fL (80.0-97.0); Mean Platelet Volume 9.9 fL (9.5-12.2); NRBC Per 100 WBC 0 /100 WBCS (0.0-0.0); Platelet Count 254 X 10*3/uL (140-440); RBC 4.43 X 10*6/uL (4.10-5.20); RDW 12.7 % (11.5-14.5); WBC 8.56 X 10*3/uL (4.50-10.00)
[2022-09-11 21:49] LABS: Chol/HDL Ratio 4.23 Ratio; LDL Cholesterol,Calculated 88.4 mg/dL (0.0-131.0); Prealbumin 23.8 mg/dL (18.0-42.0)
[2022-09-11 21:54] LABS: ALT 67 U/L (8-44); AST 39 U/L (13-35); African American GFR (CKD) 118.5 (60.0-200.0); Albumin 4.3 g/dL (3.8-4.9); Albumin/Globulin Ratio 1.95 (1.60-3.17); Alkaline Phosphatase 81 U/L (41-126); BUN/Creat Ratio 15.43 Ratio (12.00-20.00); Blood Urea Nitrogen 11.2 mg/dL (9.0-27.0); Calcium 9.4 mg/dL (8.7-10.3); Carbon Dioxide 23.2 mmol/L (20.0-27.5); Chloride 106 mmol/L (96-109); Ferritin 49.4 ng/mL (10.0-291.0); Globulin 2.2 g/dL (1.6-3.3); Glucose 88 mg/dL (70-110); Iron 85 ug/dL (50-170); Non-African American GFR(CKD) 102.3 (60.0-200.0); Phosphorus 2.7 mg/dL (2.4-5.1); Potassium 4.3 mmol/L (3.5-5.5); Sodium 142 mmol/L (135-145); Total Protein 6.5 g/dL (6.2-8.2)
== END | disposition home or self-care (01) ==
LOC: LABWHC1 10:48
PROVIDERS: ATTEND Surgery Plastic and Reconstructive Surgery
DX: C22.9 Malignant neoplasm of liver, not specified as primary or secondary (principal); E66.01 Morbid (severe) obesity due to excess calories; E89.1 Postprocedural hypoinsulinemia; D50.8 Other iron deficiency anemias; K91.2 Postsurgical malabsorption, not elsewhere classified; E44.0 Moderate protein-calorie malnutrition; E45 Retarded development following protein-calorie malnutrition; E55.9 Vitamin D deficiency, unspecified; K74.1 Hepatic sclerosis; N19 Unspecified kidney failure; T56.894A Toxic effect of other metals, undetermined, initial encounter; K50.90 Crohn's disease, unspecified, without complications
CPT/HCPCS: 36415; 80053; 80061; 82306; 82525; 82607; 82728; 82746; 83036; 83540; 83550; 83735; 83970; 84100; 84134; 84255; 84425; 84443; 84590; 84630; 85027

== ENCOUNTER → 2022-10-06 | Outpatient (CLI) | payer BC ==
--- NOTE | 2022-10-06 07:43 | US ---
EXAMINATION TYPE: US liver DATE OF EXAM: 10/06/2022 COMPARISON: NONE CLINICAL HISTORY: R94.5 Abnormal liver function test. TECHNIQUE: Multiple sonographic images of the right upper quadrant are obtained. FINDINGS: EXAM MEASUREMENTS: Liver Length: 16.4 cm Gallbladder Wall: Surgically absent CBD: 0.5 cm Right Kidney: 11.1 x 3.8 x 4.9 cm ROCKET ENGINE MECHANIC NOTES: Pancreas: Obscured by bowel gas Liver: Increased attenuation, no ductal dilation or masses. Gallbladder: Surgically absent Evidence for sonographic Palacios's sign: No CBD: wnl Right Kidney: No hydronephrosis or masses seen IMPRESSION: 1. No evidence for acute process. 2. Hepatic steatosis.
== END | disposition home or self-care (01) ==
LOC: RADUSWWP 07:05
PROVIDERS: ATTEND Surgery Plastic and Reconstructive Surgery
DX: K76.0 Fatty (change of) liver, not elsewhere classified (principal); R94.5 Abnormal results of liver function studies
CPT/HCPCS: 76705

== ENCOUNTER → 2023-03-12 | Outpatient (CLI) | payer BC ==
[2023-03-12 12:26] LABS: ALT 28 U/L (4-34); AST 26 U/L (14-36); African American GFR (CKD) >90 (>60 ml/min/1.73 sqM); Albumin 4.4 g/dL (3.5-5.0); Albumin/Globulin Ratio 1.6; Alkaline Phosphatase 55 U/L (38-126); Anion Gap 10 mmol/L; Blood Urea Nitrogen 10 mg/dL (7-17); Calcium 9.2 mg/dL (8.4-10.2); Carbon Dioxide 27 mmol/L (22-30); Chloride 105 mmol/L (98-107); Globulin 2.8 g/dL; Glucose 67 mg/dL (74-99); Non-African American GFR(CKD) >90 (>60 ml/min/1.73 sqM); Sodium 142 mmol/L (137-145); Total Bilirubin 2.5 mg/dL (0.2-1.3); Total Protein 7.2 g/dL (6.3-8.2)
== END | disposition home or self-care (01) ==
LOC: LABWHC1 10:23
PROVIDERS: ATTEND Ophthalmology
DX: C22.9 Malignant neoplasm of liver, not specified as primary or secondary (principal); C34.90 Malignant neoplasm of unspecified part of unspecified bronchus or lung; C69.30 Malignant neoplasm of unspecified choroid
CPT/HCPCS: 36415; 80053

== ENCOUNTER → 2023-09-21 | Outpatient (CLI) | payer BC ==
[2023-09-21 13:41] VITALS: BP 114/79; PULSE 71; TEMP 97.6; BMI 32.8
--- NOTE | 2023-09-21 14:02 | P.BASOAP ---
Subjective Progress Note Date: 09/21/23 DATE OF SERVICE: 09/21/2023 CHIEF COMPLAINT: Followup sleeve gastrectomy HISTORY OF PRESENT ILLNESS: Erica Garay is a 43-year-old female status post sleeve gastrectomy, 2014. She is 8 years out. She comes in with additional weight loss. She was on a weight loss medication however discontinued. She is not on Wegovy any longer. She report losing 30 pounds while on medication, down from 220 to 197 pounds. She reports menta exhaustion. She sleeps at least 7 hrs at night. Her fluids intake is less than 60 oz daily. She drinks caffeine for her fatigue. She feels fatigued. Denies gastroesophageal reflux disease. She comes in with panniculitis. At her height of 5 foot 5 inches, her ideal body weight is 149 pounds. Her highest weight was 253 pounds. Today she comes in 197 pounds from 218 pounds, 2 years ago. She has lost 21 pounds in 2 years. Lifetime weight loss is 56 pounds. Her lifetime excess percent weight loss is 54%. She is 48 pounds overweight. Her lowest weight was 166 pounds. She has gained 31 pounds from her lowest recorded weight. PAST MEDICAL HISTORY: 1. Osteoarthritis. 2. Gilbert syndrome. 3. Morbid obesity due to excess calories, BMI 42.2, initial. 4. Ocular melanoma status post radiation 5. Hypothyroidism PAST SURGICAL HISTORY: 1. Bilateral breast reduction. 2. . 3. Laparoscopic cholecystectomy. 4. Sleeve gastrectomy. 5. Removal melanoma from her eye MEDICATIONS: Home Medications Medication Instructions Recorded Confirmed Multivitamins, Thera [Multivitamin 1 each PO DAILY 09/11/15 09/21/23 (formulary)] Calcium Carbonate 500 mg PO DAILY 09/10/20 09/21/23 Vitamin C/Biotin [Hair, Skin and 1 tab PO DAILY 06/13/21 09/21/23 Nails Chew] Semaglutide [Wegovy] 2.4 mg SQ Q7DAYS 09/21/23 09/21/23 Previous Rx's Medication Instructions Recorded Nystatin 100,000 Unit/gm Powd 1 applic TOPICAL BID #60 gm 09/21/23 [Mycostatin Powder] ALLERGIES: 1. ADHESIVE TAPE. 2. PENICILLIN. SOCIAL HISTORY: Lifelong nontobacco user. FAMILY HISTORY: No reports of gastrointestinal malignancies. History of morbid obesity and diabetes. Family history of thyroid disorder. REVIEW OF SYSTEMS: CONSTITUTIONAL: [place] body weight is 149 pounds. Highest weight 253 pounds. Body mass index reduced from 42.2. Height 5 foot 5 inches. GASTROINTESTINAL: No reports of gastroesophageal reflux disease. MUSCULOSKELETAL: Resolved lower back and bilateral knee pain. CARDIOVASCULAR: Resolved hypertension. Denies palpitations. RESPIRATORY: History of obstructive sleep apnea and insomnia. ENDOCRINE: No reports of diabetes. No reports of hypothyroidism. SKIN: Reports pannus with occasional itch and ulcerations consistent with mild to moderate panniculitis. HEENT: No troubles with hearing. Recent ocular melanoma GI: No reports of dysphagia or change in bowel habits. NEURO: No reports of headaches or seizure disorders. PSYCH: No reports of depression or suicidal ideation. HEMATOLOGIC: No reports of DVTs or pulmonary embolism. PHYSICAL EXAM: VITAL SIGNS: 5 foot 5, 197 pounds. Body mass index 32.8 Vital Signs Temp 97.6 F 09/21/23 13:16 Pulse 71 09/21/23 13:16 Resp BP 114/79 09/21/23 13:16 Pulse Ox FiO2 GENERAL: Well-developed female in no acute distress. ABDOMEN: Soft. Nontender. Nondistended. No palpable incisional hernias. Pannus grade 3 panniculitis. MUSCULOSKELETAL: No clubbing, cyanosis, or edema. HEENT: No scleral icterus. Extraocular movements grossly intact. Moist. Mucosa. NECK: Supple without lymphadenopathy. CHEST: Nonlabored respirations with equal bilateral excursions. CARDIOVASCULAR: Regular rate and rhythm. NEURO: No focal or lateralizing signs. PSYCH: Alert and oriented to person place and time. SKIN: Well perfused. Good skin turgor. LABS: Labs reveals from 2021 demonstrates mildly elevated LFTs. Triglycerides mildly elevated. ASSESSMENT: 1. Morbid obesity due to excess calories. 2. Body mass index reduced from 42.2 down to 32.8 3. Status post sleeve gastrectomy. 4. Generalized fatigue. 5. Dietary surveillance and counseling 7. Family history of thyroid disorder. 8. Hypothyroidism 9. Ocular melanoma 10. Weight gain following weight loss surgery. 11. Hypertriglyceridemia 12. Elevated liver enzymes 13. Panniculitis. PLAN: 1. Mental fatigue may also be exacerbated by chronic dehydration. Recommend increase fluid intake using formal Weight * .67. 2. Recommend yearly bariatric labs. 3. Nystatin powder prescribed for panniculitis. 4. Medical reconciliation reviewed. Objective - Vital Signs Vital signs: Vital Signs Temp 97.6 F 09/21/23 13:16 Pulse 71 09/21/23 13:16 Resp BP 114/79 09/21/23 13:16 Pulse Ox FiO2 Intake & Output 09/20/23 09/21/23 09/21/23 18:59 06:59 18:59 Weight 89.358 kg Assessment/Plan Plan: Date: 09/21/23 Initial Weight: 108.272 kg Initial BMI: 39.6 Current Weight: 89.358 kg Current BMI: 32.8 Type of Surgery: Total Volume in Band: Previous Volume: Volume Removed: Volume Added: Band Size:
== END ==
LOC: BARWHC3 13:01
PROVIDERS: ATTEND Surgery Plastic and Reconstructive Surgery
DX: E66.01 Morbid (severe) obesity due to excess calories (principal); C43.10 Malignant melanoma of unspecified eyelid, including canthus; M19.90 Unspecified osteoarthritis, unspecified site; E80.4 Gilbert syndrome; E03.9 Hypothyroidism, unspecified; Z68.41 Body mass index [BMI] 40.0-44.9, adult; Z90.49 Acquired absence of other specified parts of digestive tract; Z98.84 Bariatric surgery status; R53.83 Other fatigue; E78.1 Pure hyperglyceridemia; R79.89 Other specified abnormal findings of blood chemistry; M79.3 Panniculitis, unspecified; Z91.048 Other nonmedicinal substance allergy status; Z88.0 Allergy status to penicillin
CPT/HCPCS: 99211

== ENCOUNTER → 2023-09-24 | Outpatient (CLI) | payer BC ==
[2023-09-24 10:50] LABS: Partial Thromboplastin Time 23.2 sec (22.0-30.0); Prothrombin Time 10.5 sec (10.0-12.5)
[2023-09-24 13:52] LABS: Prealbumin 30.9 mg/dL (18.0-42.0)
[2023-09-24 14:02] LABS: HCT 41.8 % (37.2-46.3); HGB 14.1 g/dL (12.0-15.0); MCH 29.8 pg (27.0-32.0); MCHC 33.7 g/dL (32.0-37.0); MCV 88.4 FL (80.0-97.0); Mean Platelet Volume 9.9 FL (9.5-12.2); NRBC Per 100 WBC 0 X 10*3/uL (0.00-0.01); Platelet Count 233 X 10*3/uL (140-440); RBC 4.73 X 10*6/uL (4.10-5.20); RDW 12.3 % (11.5-14.5); WBC 7.81 X 10*3/uL (4.50-10.00)
[2023-09-24 14:16] LABS: Chol/HDL Ratio 3.44 Ratio; Ferritin 86.7 ng/mL (10.0-291.0); LDL Cholesterol,Calculated 83.6 mg/dL (0.0-131.0); VLDL Calculation 17.82 mg/dL (5.00-40.00)
[2023-09-24 14:34] LABS: Magnesium 2.1 mg/dL (1.5-2.4); Phosphorus 3.2 mg/dL (2.4-5.1)
[2023-09-25 18:58] LABS: % Iron Saturation 32.28 (12.00-45.00); Iron 102 UG/DL (50-170); Total Iron Binding Capacity 316 UG/DL (228-460)
[2023-09-25 19:33] LABS: ALT 31 U/L (8-44); AST 22 U/L (13-35); Albumin 4.7 g/dL (3.8-4.9); Albumin/Globulin Ratio 1.88 Ratio (1.60-3.17); Alkaline Phosphatase 69 U/L (41-126); BUN/Creat Ratio 14.25 Ratio (12.00-20.00); Blood Urea Nitrogen 11.4 mg/dL (9.0-27.0); Calcium 9.7 mg/dL (8.7-10.3); Carbon Dioxide 25.7 mmol/L (21.6-31.8); Chloride 104 mmol/L (96-109); Globulin 2.5 g/dL (1.6-3.3); Glucose 83 mg/dL (70-110); Potassium 4.3 mmol/L (3.5-5.5); Sodium 141 mmol/L (135-145); Total Bilirubin 2.2 mg/dL (0.3-1.2); Total Protein 7.2 g/dL (6.2-8.2)
== END | disposition home or self-care (01) ==
LOC: LABWHC1 08:39
PROVIDERS: ATTEND Surgery Plastic and Reconstructive Surgery
DX: C22.9 Malignant neoplasm of liver, not specified as primary or secondary (principal); E66.01 Morbid (severe) obesity due to excess calories; E89.1 Postprocedural hypoinsulinemia; D50.8 Other iron deficiency anemias; K91.2 Postsurgical malabsorption, not elsewhere classified; E44.0 Moderate protein-calorie malnutrition; E44.1 Mild protein-calorie malnutrition; E45 Retarded development following protein-calorie malnutrition; E46 Unspecified protein-calorie malnutrition; E55.9 Vitamin D deficiency, unspecified; K74.1 Hepatic sclerosis; N19 Unspecified kidney failure; T56.894A Toxic effect of other metals, undetermined, initial encounter; K50.90 Crohn's disease, unspecified, without complications
CPT/HCPCS: 36415; 80053; 80061; 82306; 82525; 82607; 82728; 82746; 83036; 83540; 83550; 83735; 83970; 84100; 84134; 84255; 84425; 84443; 84590; 84630; 85027; 85610; 85730

== ENCOUNTER → 2024-09-12 | Outpatient (CLI) | payer OTHER ==
[2024-09-12 16:29] VITALS: BP 119/78; PULSE 78; RESP 16; TEMP 97.8; BMI 27.6
--- NOTE | 2024-09-12 16:34 | P.BASOAP ---
Subjective Progress Note Date: 09/12/24 She is taking wegovy and has weight loss. Smallest she has ever been. Her eyes are better with a tumor. She has no belly pain. NO nausea. Protein intake unsure. She was only doing iced coffee only. She lost 33 pounds. She was not eating protein. No GERD. No dysphagia. Blood work. Wegovy for 1 year. She was 225 pounds and now 166 pounds. Her appetite is diminished. She eats very little and is satisfied. She is not hungry all of the time. Reviewed thyroid levels. Curious is labs would be lower. FU Objective - Vital Signs Vital signs: Vital Signs Temp 97.8 F 09/12/24 16:23 Pulse 78 09/12/24 16:23 Resp 16 09/12/24 16:23 BP 119/78 09/12/24 16:23 Pulse Ox FiO2 Intake & Output 09/11/24 09/12/24 09/12/24 18:59 06:59 18:59 Weight 75.296 kg Assessment/Plan Plan: Date: 09/12/24 Initial Weight: 108.272 kg Initial BMI: 39.6 Current Weight: 75.296 kg Current BMI: 27.6 Type of Surgery: Total Volume in Band: Previous Volume: Volume Removed: Volume Added: Band Size:
== END ==
LOC: BARWHC3 08:07
PROVIDERS: ATTEND Surgery Plastic and Reconstructive Surgery
DX: E66.01 Morbid (severe) obesity due to excess calories (principal); Z68.27 Body mass index [BMI] 27.0-27.9, adult; Z88.0 Allergy status to penicillin; Z91.048 Other nonmedicinal substance allergy status
CPT/HCPCS: 99211

== ENCOUNTER → 2024-09-22 | Outpatient (CLI) | payer OTHER ==
[2024-09-22 12:36] LABS: Partial Thromboplastin Time 28.5 sec (22.0-30.0); Prothrombin Time 10.6 sec (10.0-12.5)
[2024-09-23 07:48] LABS: Basophils # (A) 0.05 X 10*3/uL (0.00-0.10); Basophils % (A) 0.7 %; Eosinophils # (A) 0.19 X 10*3/uL (0.04-0.35); Eosinophils % (A) 2.6 %; HCT 42.7 % (37.2-46.3); HGB 13.7 g/dL (12.0-15.0); Lymphocytes % (A) 39.2 %; MCH 28.8 pg (27.0-32.0); MCHC 32.1 g/dL (32.0-37.0); MCV 89.9 FL (80.0-97.0); Mean Platelet Volume 10.6 FL (9.5-12.2); Monocytes # (A) 0.47 X 10*3/uL (0.20-1.00); Monocytes % (A) 6.4 %; NRBC Per 100 WBC 0 X 10*3/uL (0.00-0.01); Neutrophils # (A) 3.77 X 10*3/uL (1.80-7.70); Neutrophils % (A) 50.8 %; Platelet Count 248 X 10*3/uL (140-440); RBC 4.75 X 10*6/uL (4.10-5.20); RDW 12.7 % (11.5-14.5)
[2024-09-23 09:45] LABS: Chol/HDL Ratio 3.26 Ratio; LDL Cholesterol,Calculated 88.2 mg/dL (0.0-131.0); Phosphorus 3.2 mg/dL (2.4-5.1); VLDL Calculation 12.98 mg/dL (5.00-40.00)
[2024-09-23 10:20] LABS: Prealbumin 23.6 mg/dL (18.0-42.0)
[2024-09-23 10:32] LABS: Ferritin 88.3 ng/mL (10.0-291.0); Iron 103 UG/DL (50-170); Total Iron Binding Capacity 283 UG/DL (228-460)
[2024-09-23 10:52] LABS: ALT 17 U/L (8-44); AST 17 U/L (13-35); Albumin 4.4 g/dL (3.8-4.9); Albumin/Globulin Ratio 1.91 Ratio (1.60-3.17); Alkaline Phosphatase 69 U/L (41-126); BUN/Creat Ratio 13.25 Ratio (12.00-20.00); Blood Urea Nitrogen 10.6 mg/dL (9.0-27.0); Calcium 9.4 mg/dL (8.7-10.3); Carbon Dioxide 20.5 mmol/L (21.6-31.8); Chloride 105 mmol/L (96-109); Globulin 2.3 g/dL (1.6-3.3); Glucose 74 mg/dL (70-110); Potassium 4.4 mmol/L (3.5-5.5); Sodium 142 mmol/L (135-145); Total Bilirubin 2.5 mg/dL (0.3-1.2); Total Protein 6.7 g/dL (6.2-8.2)
[2024-09-24 13:52] LABS: Zinc, Serum 49 ug/dL (60-130)
== END | disposition home or self-care (01) ==
LOC: LABWHC1 10:06
PROVIDERS: ATTEND Nurse Practitioner Adult Health
DX: Z00.00 Encounter for general adult medical examination without abnormal findings (principal); E66.01 Morbid (severe) obesity due to excess calories; E89.1 Postprocedural hypoinsulinemia; D50.8 Other iron deficiency anemias; E44.0 Moderate protein-calorie malnutrition; E45 Retarded development following protein-calorie malnutrition; E55.9 Vitamin D deficiency, unspecified; K74.1 Hepatic sclerosis; N19 Unspecified kidney failure; T56.894A Toxic effect of other metals, undetermined, initial encounter; K50.90 Crohn's disease, unspecified, without complications
CPT/HCPCS: 36415; 80053; 80061; 82306; 82525; 82607; 82728; 82746; 83036; 83540; 83550; 83735; 83970; 84100; 84134; 84255; 84425; 84439; 84443; 84590; 84630; 85025; 85610; 85730